=== PATIENT | female | born 2000 | race Caucasian/White ===

== ENCOUNTER 2023-06-19 12:28 | Emergency (ER) | payer OTHER ==
[2023-06-19] MEDS: FAMOTIDINE 20 MG TAB PO STA (13:21)
[2023-06-19] MEDS: methylPREDNISolone SOD SUCCI 125 MG/2 ML VIAL IM ONE (13:22)
[2023-06-19] MEDS: diphenhydrAMINE 50 MG/ML 1 ML VIAL IM STA (13:23)
--- NOTE | 2023-06-19 13:24 | ED ---
Skin/Abscess/FB HPI - General Chief complaint: Skin/Abscess/Foreign Body Stated complaint: Rash Time Seen by Provider: 06/19/23 12:44 Source: patient, RN notes reviewed Mode of arrival: ambulatory Limitations: no limitations - History of Present Illness Initial comments: This is a 23-year-old female who presents to the emergency department for a rash. States that over the last month she has been dealing with a rash on her bilateral upper and lower extremities and abdomen. This did at one point appeared on the face, however that has since resolved. She has been to urgent care several times and been treated with courses of steroids and antibiotics with no relief. She has also taken jjca-sex-wheurxe Benadryl and used hydrocortisone cream, which has not been helpful. The rash is occasionally itchy, but not persistently itchy. Denies any history of similar problems in the past. Denies coming in contact with any new soaps, lotions, or creams. MD complaint: rash - Related Data Previous Rx's Medication Instructions Recorded Clobetasol Propionate [Temovate 1 applic TOPICAL BID #60 gm 06/19/23 0.05% Cream] predniSONE 50 mg PO DAILY 5 Days #5 tab 06/19/23 Allergies Allergy/AdvReac Type Severity Reaction Status Date / Time No Known Allergies Allergy Verified 06/19/23 12:42 Review of Systems ROS Statement: Those systems with pertinent positive or pertinent negative responses have been documented in the HPI. ROS Other: All systems not noted in ROS Statement are negative. Past Medical History Additional Past Medical History / Comment(s): crohns polycystic ovaries Past Surgical History: Bowel Resection Smoking Status: Vaper General Exam Limitations: no limitations General appearance: alert, in no apparent distress Respiratory exam: Present: normal lung sounds bilaterally. Absent: respiratory distress, wheezes, rales, rhonchi, stridor Cardiovascular Exam: Present: regular rate, normal rhythm, normal heart sounds. Absent: systolic murmur, diastolic murmur, rubs, gallop, clicks Neurological exam: Present: alert, oriented X3, CN II-XII intact Psychiatric exam: Present: normal affect, normal mood Skin exam: Present: other (Scaly erythematous macular lesions to the bilateral upper and lower extremities and abdomen.) Course Vital Signs 06/19/23 06/19/23 06/19/23 12:39 14:18 15:05 Temperature 98.2 F 98.1 F 98.1 F Pulse Rate 110 H 88 18 L Respiratory 20 18 18 Rate Blood Pressure 112/76 128/76 126/76 O2 Sat by Pulse 98 97 97 Oximetry Medical Decision Making - Medical Decision Making This is a 23-year-old female who presents to the emergency department for a rash. Was pt. sent in by a medical professional or institution? @ -No Did you speak to anyone other than the patient for history? @ -No Did you review nursing and triage notes? @ -Yes, and I agree, it is accurate with regards to the patient's symptoms. Were old charts reviewed? @ -No Differential Diagnosis? @ -Differential Rash: Roseola, measles, Lyme disease, erythema multiforme, cellulitis, toxic shock syndrome, Norberto Aldair syndrome, Kawasaki disease, kris mountain spotted fever, contact dermatitis, allergic dermatitis, measles, mumps, rubella, varicella, meningococcal disease, drug reaction, coxsackievirus, This is not meant to be an all-inclusive list. EKG interpreted by me (3pts min.)? @ -Not obtained X-rays interpreted by me (1pt min.)? @ -Not obtained CT interpreted by me (1pt min.)? @ -Not obtained U/S interpreted by me (1pt. min.)? @ -Not obtained What testing was considered but not performed? (CT, X-rays, U/S, labs)? Why? @ -None What meds were considered but not given? Why? @ -None Did you discuss the management of the patient with other professionals? @ -No Did you reconcile home meds? @ -No Was smoking cessation discussed for >3mins.? @ -No Was critical care preformed (if so, how long)? @ -No Were there social determinants of health that impacted care today? How? (Homelessness, low income, unemployed, alcoholism, drug addiction, tr ansportation, low edu. Level, literacy, decrease access to med. care, fpc, rehab)? @ -No Was there de-escalation of care discussed even if they declined? (Discuss DNR or withdrawal of care, Hospice)? @ -No What co-morbidities impacted this encounter? (DM, HTN, Smoking, COPD, CAD, Cancer, CVA, Hep., AIDS, mental health diagnosis, sleep apnea, morbid obesity)? @ -None Was patient admitted / discharged? @ -Discharged. Physical examination demonstrates a rash covering the bilateral upper and lower extremities that is erythematous and scaly in nature. Advised that the cause of this is not entirely clear. She was given a dose of Solu- Medrol, Benadryl, and famotidine in the emergency department. Will try an additional 5-day course of prednisone along with clobetasol cream. Case management made the patient an appointment with dermatology for 1 week from today. Advised she follow-up as scheduled for further evaluation. Undiagnosed new problem with uncertain prognosis? @ -None Drug Therapy requiring intensive monitoring for toxicity (Heparin, Nitro, Insulin, Cardizem)? @ -None Were any procedures done? @ -None Diagnosis/symptom? @ -Rash Acute, or Chronic, or Acute on Chronic? @ -Acute Uncomplicated (without systemic symptoms) or Complicated (systemic symptoms)? @ -Uncomplicated Side effects of treatment? @ -None Exacerbation, Progression, or Severe Exacerbation] @ -Not applicable Poses a threat to life or bodily function? @ -No Return precautions reviewed in depth, the patient is instructed to return to the emergency department with any new, worsening, or concerning symptoms. Patient verbalized understanding. This case was discussed in detail with the attending ED physician, Dr. Julio. Presentation, findings, and treatment plan discussed in detail as well. Disposition Clinical Impression: Rash Disposition: HOME SELF-CARE Instructions (If sedation given, give patient instructions): Acute Rash (ED) Additional Instructions: Return to the emergency department with any new, worsening, or concerning symptoms. Take the prednisone daily for 5 days. Apply the clobetasol cream to the affected areas twice daily. Do not apply this to the face. Follow up with your primary care provider in 1-2 days. To find a supervisor plate forming office that will accept your insurance call you insurance provider and obtain a list of providers. Dr Adalberto Cadena at [facility] [address] [facility] [id number] appointment date is Saturday06-26-2023 at 9:30am. Please bring insurance cards and ID cards. You will have new patient paperwork to complete. Prescriptions: predniSONE 50 mg PO DAILY 5 Days #5 tab Clobetasol Propionate [Temovate 0.05% Cream] 1 applic TOPICAL BID #60 gm Is patient prescribed a controlled substance at d/c from ED?: No Referrals: Adarsh Potter MD [Primary Care Provider] - 1-2 days Time of Disposition: 15:02
[2023-06-19] MEDS: CLOBETASOL PROP 0.05% CR 15GM TOPICAL STA (14:02)
[2023-06-19 14:32] VITALS: RESP 18; TEMP 98.1
[2023-06-19 15:12] VITALS: BP 126/76; PULSE 18
== END 2023-06-19 16:06 | disposition home or self-care (01) ==
LOC: EC 12:28
DX: R21 Rash and other nonspecific skin eruption (principal); F17.290 Nicotine dependence, other tobacco product, uncomplicated
CPT/HCPCS: 99282; 96372 ×2; J1200; J2930